=== PATIENT | male | born 1960 | race Asian ===

== ENCOUNTER 2016-04-27 12:20 | Emergency (ER) | payer OTHER ==
[~2016-04-27] VITALS: Ht 172.7 cm; Wt 68.9 kg
[~2016-04-27 12:20] MED LIST: AMOX500C85 PO; BENZONATATE200 MG PO; DOCU100C10 PO; LORTAB1 TAB; PROM25TA52 PO; RANI150T78 PO; TRAM50TA PO; TYLENOL PM OR
[2016-04-27 16:34] LABS: POTASSIUM 4.2 mmol/L (3.6-5.2)
[2016-04-28 00:47] VITALS: BP 125/74; TEMP 98.7
== END 2016-04-28 00:49 | disposition short-term general hospital (02) ==
LOC: ED 12:20
PROVIDERS: Specialist
DX: I24.9 Acute ischemic heart disease, unspecified (principal); E11.65 Type 2 diabetes mellitus with hyperglycemia
CPT/HCPCS: 80053; 81000; 82550; 82553; 83605; 83735; 84100; 84484; 85379; 85610; 93005; 99285

== ENCOUNTER 2016-07-12 07:51 | Outpatient (CLI) | payer OTHER ==
[2016-07-12 08:08] LABS: PLATELET COUNT 201 K/uL (142-355)
[2016-07-12 08:40] LABS: POTASSIUM 3.5 mmol/L (3.6-5.2); SODIUM 135 mmol/L (136-145)
== END 2016-07-12 20:59 | disposition home or self-care (01) ==
LOC: LABW 07:51
PROVIDERS: Internal Medicine
DX: E11.9 Type 2 diabetes mellitus without complications (principal)
CPT/HCPCS: 36415; 80053; 80061; 81000; 82043; 82570; 83036; 84443; 85027

== ENCOUNTER 2016-10-31 11:23 | Outpatient (CLI) | payer OTHER ==
[2016-10-31 11:54] LABS: PLATELET COUNT 211 K/uL (142-355)
[2016-10-31 12:14] LABS: POTASSIUM 4.4 mmol/L (3.6-5.2)
== END 2016-10-31 12:30 | disposition home or self-care (01) ==
LOC: LABW 11:23
PROVIDERS: Internal Medicine
DX: E11.9 Type 2 diabetes mellitus without complications (principal)
CPT/HCPCS: 36415; 80053; 80061; 81000; 83036; 85027

== ENCOUNTER 2017-04-30 09:17 | Outpatient (CLI) | payer OTHER ==
[2017-04-30 09:59] LABS: PLATELET COUNT 196 K/uL (142-355)
[2017-04-30 11:52] LABS: SODIUM 136 mmol/L (136-145)
== END 2017-04-30 19:05 | disposition home or self-care (01) ==
LOC: LABW 09:17
PROVIDERS: Internal Medicine
DX: Z00.00 Encounter for general adult medical examination without abnormal findings (principal); Z12.5 Encounter for screening for malignant neoplasm of prostate; R73.09 Other abnormal glucose; E78.6 Lipoprotein deficiency
CPT/HCPCS: 36415; 80053; 80061; 81000; 83036; 84153; 84443; 85027

== ENCOUNTER 2017-11-14 08:27 | Outpatient (CLI) | payer OTHER | END 2017-11-14 19:49 | disposition home or self-care (01) | LOC: RESP 08:27 | DX: J44.9 Chronic obstructive pulmonary disease, unspecified (principal) ==

== ENCOUNTER 2018-12-18 09:41 | Outpatient (CLI) | payer OTHER ==
[2018-12-18 10:44] LABS: PLATELET COUNT 185 K/uL (142-355)
[2018-12-18 11:03] LABS: POTASSIUM 3.7 mmol/L (3.6-5.2)
== END 2018-12-18 22:31 | disposition home or self-care (01) ==
LOC: LABW 09:41
PROVIDERS: Family Medicine
DX: M79.642 Pain in left hand (principal); M79.641 Pain in right hand; M19.90 Unspecified osteoarthritis, unspecified site; E11.9 Type 2 diabetes mellitus without complications; I10 Essential (primary) hypertension; E55.9 Vitamin D deficiency, unspecified; E78.49 Other hyperlipidemia; G89.29 Other chronic pain; N52.8 Other male erectile dysfunction; J44.9 Chronic obstructive pulmonary disease, unspecified; K21.9 Gastro-esophageal reflux disease without esophagitis
CPT/HCPCS: 36415; 80053; 80061; 81000; 82306; 83036; 83735; 84153; 84550; 85027; 86430

== ENCOUNTER 2019-02-27 08:09 | Outpatient (CLI) | payer OTHER | END 2019-02-27 22:14 | disposition home or self-care (01) | LOC: LABW 08:09 | DX: B35.1 Tinea unguium (principal) | CPT/HCPCS: 36415; 84450; 84460 ==

== ENCOUNTER 2019-05-04 07:48 | Outpatient (CLI) | payer OTHER | END 2019-05-04 19:10 | disposition home or self-care (01) | LOC: LABW 07:48 | DX: Z00.00 Encounter for general adult medical examination without abnormal findings (principal); Z12.11 Encounter for screening for malignant neoplasm of colon | CPT/HCPCS: 82272 ==

== ENCOUNTER 2021-05-22 07:45 | Outpatient (CLI) | payer OTHER ==
[2021-05-22 08:12] LABS: PLATELET COUNT 199 K/uL (142-355)
[2021-05-22 08:42] LABS: POTASSIUM 3.7 mmol/L (3.6-5.2)
== END 2021-05-22 19:00 | disposition home or self-care (01) ==
LOC: LABW 07:45
PROVIDERS: ATTEND Internal Medicine
DX: M19.90 Unspecified osteoarthritis, unspecified site (principal); I10 Essential (primary) hypertension; I25.10 Atherosclerotic heart disease of native coronary artery without angina pectoris
CPT/HCPCS: 36415; 80053; 80061; 81000; 84439; 84443; 84550; 85027; 85652; 86038; 86140; 86430

== ENCOUNTER 2021-08-30 07:50 | Outpatient (CLI) | payer OTHER ==
[2021-08-30 08:38] LABS: PLATELET COUNT 196 K/uL (142-355)
[2021-08-30 08:45] LABS: POTASSIUM 3.7 mmol/L (3.6-5.2)
== END 2021-08-30 18:51 | disposition home or self-care (01) ==
LOC: LABW 07:50
PROVIDERS: ATTEND Internal Medicine
DX: E11.9 Type 2 diabetes mellitus without complications (principal); N39.498 Other specified urinary incontinence
CPT/HCPCS: 36415; 80053; 80061; 81000; 82043; 83036; 84153; 84439; 84443; 85027

== ENCOUNTER 2021-11-09 06:54 | Outpatient (CLI) | payer OTHER ==
[2021-11-09 07:12] LABS: PLATELET COUNT 209 K/uL (142-355)
[2021-11-09 08:19] LABS: POTASSIUM 4.6 mmol/L (3.6-5.2)
== END 2021-11-09 19:03 | disposition home or self-care (01) ==
LOC: LABW 06:54
PROVIDERS: ATTEND Internal Medicine
DX: Z00.00 Encounter for general adult medical examination without abnormal findings (principal); Z12.5 Encounter for screening for malignant neoplasm of prostate
CPT/HCPCS: 36415; 80053; 80061; 81002; 83036; 84153; 84439; 84443; 85027

== ENCOUNTER 2022-05-02 12:19 | Outpatient (CLI) | payer OTHER ==
[2022-05-02 12:48] LABS: PLATELET COUNT 183 K/uL (142-355)
[2022-05-02 13:10] LABS: POTASSIUM 3.8 mmol/L (3.6-5.2)
== END 2022-05-02 19:34 | disposition home or self-care (01) ==
LOC: LAB 12:19
PROVIDERS: ATTEND Internal Medicine
DX: E11.9 Type 2 diabetes mellitus without complications (principal); I10 Essential (primary) hypertension; I25.10 Atherosclerotic heart disease of native coronary artery without angina pectoris
CPT/HCPCS: 80053; 80061; 81002; 83036; 84439; 84443; 85027

== ENCOUNTER 2022-09-26 14:11 | Outpatient (CLI) | payer OTHER ==
[2022-09-26 14:32] LABS: PLATELET COUNT 187 K/uL (142-355)
[2022-09-26 14:55] LABS: POTASSIUM 4.5 mmol/L (3.6-5.2)
== END 2022-09-26 19:22 | disposition home or self-care (01) ==
LOC: LAB 14:11
PROVIDERS: ATTEND Internal Medicine
DX: E11.9 Type 2 diabetes mellitus without complications (principal)
CPT/HCPCS: 36415; 80053; 80061; 81002; 83036; 84439; 84443; 85027

== ENCOUNTER 2023-01-02 11:56 | Outpatient (CLI) | payer OTHER ==
[2023-01-02 12:11] LABS: PLATELET COUNT 198 K/uL (142-355)
[2023-01-02 12:32] LABS: POTASSIUM 5.4 mmol/L (3.6-5.2)
== END 2023-01-02 19:18 | disposition home or self-care (01) ==
LOC: LAB 11:56
PROVIDERS: ATTEND Internal Medicine
DX: Z00.00 Encounter for general adult medical examination without abnormal findings (principal); Z12.5 Encounter for screening for malignant neoplasm of prostate; E11.9 Type 2 diabetes mellitus without complications
CPT/HCPCS: 80053; 80061; 81000; 83036; 84153; 84439; 84443; 85027

== ENCOUNTER 2023-01-24 08:05 | Outpatient (CLI) | payer OTHER | END 2023-01-24 19:06 | disposition home or self-care (01) | LOC: CT 08:05 | PROVIDERS: ATTEND Internal Medicine | DX: Z13.6 Encounter for screening for cardiovascular disorders (principal); Z12.2 Encounter for screening for malignant neoplasm of respiratory organs; Z87.891 Personal history of nicotine dependence ==